=== PATIENT | female | born 1965 | race Caucasian/White ===

== ENCOUNTER → 2017-06-20 | Outpatient (CLI) | payer BC | LOC: FIMAGING 08:14 | PROVIDERS: ATTEND Family Medicine | DX: Z12.31 Encounter for screening mammogram for malignant neoplasm of breast (principal) | CPT/HCPCS: G0202 ==

== ENCOUNTER → 2017-06-20 | Outpatient (CLI) | payer BC | LOC: BMCIMAGING 09:15 | PROVIDERS: ATTEND Physician Assistant | DX: S62.666A Nondisplaced fracture of distal phalanx of right little finger, initial encounter for closed fracture (principal) ==

== ENCOUNTER 2017-08-12 12:43 | Emergency (ER) | payer BC ==
--- NOTE | 2017-08-12 13:08 | EDPHY ---
H & P Time Seen by Provider: 08/12/17 13:07 HPI/ROS: Chief complaint. Elevated blood pressure This patient was seen in the emergency department by Dr. Leger and not by me Smoking Status: Never smoked Constitutional: Initial Vital Signs Heart Rate 69 08/12/17 12:50 Respiratory Rate 18 08/12/17 12:50 Blood Pressure 171/121 H 08/12/17 12:50 O2 Sat (%) 99 08/12/17 12:50 O2 Delivery Mode Room Air Allergies/Adverse Reactions: No Known Allergies Allergy (Unverified 11/02/13 23:13) Home Medications: Medication Instructions Recorded LISINOPRIL 02/01/10 Synthroid 08/12/17 Medical Decision Making - Data Points Laboratory Results: Laboratory Results 08/12/17 13:36 Departure - Departure Disposition: Home, Routine, Self-Care Clinical Impression: Hypertension Condition: Good Instructions: Hypertension (ED) Additional Instructions: 1. Please follow-up with your primary care provider on Monday as scheduled for a blood pressure recheck. 2. I recommend checking your blood pressure twice a day: Once in the morning and once before bed. 3. Please return to the ED for markedly elevated blood pressure, chest pain, shortness of breath or other concerns. Referrals: Lillie Oconnell MD [Primary Care Provider] - As per Instructions
--- NOTE | 2017-08-12 13:29 | EDPHY ---
H & P Stated Complaint: high blood pressure at , c/o stuffy head Time Seen by Provider: 08/12/17 13:07 HPI/ROS: CHIEF COMPLAINT: Hypertension HISTORY OF PRESENT ILLNESS: The patient presents to the emergency department with elevated blood pressure. This was noted at urgent care. She has a history of hypertension and takes lisinopril for this condition. She typically takes 40 mg at 5:00 p.m.. She reports her blood pressure has been in the 150- 170 systolic over 100-120 diastolic range. The patient denies any chest pain or shortness of breath. The patient denies any acute headache, numbness, weakness or abdominal pain. She has no complaints of fever, cough or congestion. REVIEW OF SYSTEMS: A comprehensive 10 point review of systems is otherwise negative aside from elements mentioned in the history of present illness. Source: Patient Exam Limitations: No limitations - Personal History LMP (Females 10-55): Now Current Tetanus Diphtheria and Acellular Pertussis (TDAP): Yes - Medical/Surgical History Hx Asthma: No Hx Chronic Respiratory Disease: No Hx Diabetes: No Hx Cardiac Disease: No Hx Renal Disease: No Hx Cirrhosis: No Hx Alcoholism: No Hx HIV/AIDS: No Hx Splenectomy or Spleen Trauma: No Other PMH: HTN,APPY, hypothyriod, ortho surgery, benign breast lumps - Social History Smoking Status: Never smoked - Physical Exam Exam: General Appearance: Alert, no distress Eyes: Pupils equal and round no pallor or injection ENT, Mouth: Mucous membranes moist Respiratory: There are no retractions, lungs are clear to auscultation Cardiovascular: Regular rate and rhythm Gastrointestinal: Abdomen is soft and nontender, no masses, bowel sounds normal Neurological: A&O, normal motor function, normal sensory exam, normal cranial nerves Skin: Warm and dry, no rashes Musculoskeletal: Neck is supple nontender Extremities: symmetrical, full range of motion Constitutional: Initial Vital Signs Heart Rate 69 08/12/17 12:50 Respiratory Rate 18 08/12/17 12:50 Blood Pressure 171/121 H 08/12/17 12:50 O2 Sat (%) 99 08/12/17 12:50 O2 Delivery Mode Room Air Allergies/Adverse Reactions: No Known Allergies Allergy (Unverified 11/02/13 23:13) Home Medications: Medication Instructions Recorded LISINOPRIL 02/01/10 Synthroid 08/12/17 Medical Decision Making ED Course/Re-evaluation: The patient presents the ED for evaluation of asymptomatic hypertension. She was noted to be 180/120 upon arrival. Without intervention her blood pressure decreased to 150/100. The patient's electrolytes are noted to be within normal limits. At this point time I do not feel that additional antihypertensive medication should be started because she has follow up with her primary care provider on Monday. She has been advised to return to the ED for hypertension in the setting of acute symptoms of headache, numbness, chest pain or difficulty breathing. Differential Diagnosis: Differential diagnosis considered includes hypertensive emergency, hypertensive urgency, primary hypertension, renal failure, thyrotoxicosis - Data Points Laboratory Results: Laboratory Results 08/12/17 13:36 08/12/17 13:36 Sodium 145 mEq/L H mEq/L (134-144) Potassium 4.0 mEq/L mEq/L (3.5-5.2) Chloride 104 mEq/L mEq/L (97-110) Carbon Dioxide 28 mEq/l mEq/l (22-31) Anion Gap 13 mEq/L mEq/L (8-16) BUN 21 mg/dL mg/dL (7-23) Creatinine 1.2 mg/dL H mg/dL (0.6-1.0) Estimated GFR 47 Glucose 104 mg/dL H mg/dL (70-100) Calcium 9.9 mg/dL mg/dL (8.5-10.4) TSH 4.280 uIU/mL uIU/mL (0.465-4.680) Free T3 3.26 pg/mL pg/mL (2.77-5.27) Total T3 1.090 ng/mL ng/mL (0.970-1.690) Departure - Departure Disposition: Home, Routine, Self-Care Clinical Impression: Hypertension Condition: Good Instructions: Hypertension (ED) Additional Instructions: 1. Please follow-up with your primary care provider on Monday as scheduled for a blood pressure recheck. 2. I recommend checking your blood pressure twice a day: Once in the morning and once before bed. 3. Please return to the ED for markedly elevated blood pressure, chest pain, shortness of breath or other concerns. Referrals: Lillie Oconnell MD [Primary Care Provider] - As per Instructions
[2017-08-12 14:50] VITALS: BP 148/100; PULSE 76; RESP 16; TEMP 98.6; O2SAT 98
== END 2017-08-12 14:53 | disposition home or self-care (01) ==
DX: I10 Essential (primary) hypertension (principal)
CPT/HCPCS: 84480-90; 84481-90

== ENCOUNTER → 2017-09-04 | Outpatient (CLI) | payer BC | LOC: BMCIMAGING 14:52 | PROVIDERS: ATTEND Family Medicine | DX: E07.89 Other specified disorders of thyroid (principal) | CPT/HCPCS: 76536-PO ==

== ENCOUNTER → 2018-08-08 | Outpatient (CLI) | payer OTHER | LOC: FIMAGING 09:12 | PROVIDERS: ATTEND Family Medicine | DX: Z12.31 Encounter for screening mammogram for malignant neoplasm of breast (principal) ==

== ENCOUNTER → 2018-10-03 | Outpatient (CLI) | payer OTHER | LOC: FIMAGING 09:17 | PROVIDERS: ATTEND Family Medicine | DX: Z13.29 Encounter for screening for other suspected endocrine disorder (principal) ==